=== PATIENT | male | born 1990 | race Caucasian/White ===

== ENCOUNTER 2018-07-13 02:16 | Emergency (ER) | END 2018-07-13 06:02 | disposition home or self-care (01) ==

== ENCOUNTER 2019-06-07 14:04 | Emergency (ER) | payer MEDICAID, OTHER ==
[~2019-06-07] VITALS: Ht 188 cm; Wt 78.0 kg
[~2019-06-07 14:04] MED LIST: MED4DP PO; NAPR-985 PO
[2019-06-07 14:09] VITALS: BP 110/79; PULSE 87; RESP 20; Ht 188 cm; Wt 78.0 kg
--- NOTE | 2019-06-07 14:30 | ERD ---
ER Documentation Chief Complaint Chief Complaint LEFT TOE PAIN/SWELLING HPI 29-year-old male presents to ED complaining of left toe pain times this morning. He states he woke up suddenly with this pain. He denies any injury or trauma to the pain. He denies any previous history of similar events. He has not taken any medication for the pain. He rates the pain a 6 out of 10 intensity that is worse with movement and better with rest. He reports that he has been walking frequently in the past few days. He denies any other past medical history. ROS All systems reviewed and are negative except as per history of present illness. Medications Home Meds Active Scripts Methylprednisolone* (Medrol* DOSE PACK) 4 Mg/Dose-Pack Tab.ds.pk, 4 MG PO . DIRECTED for 4 Days, PACKET Prov:BUTCH MORTENSEN PA-C 06/07/19 Naproxen* (Naprosyn*) 500 Mg Tablet, 500 MG PO BID PRN for PAIN AND/OR INFLAMMATION, #30 TAB Prov:BUTCH MORTENSEN PA-C 06/07/19 Naproxen* (Naprosyn*) 500 Mg Tablet, 500 MG PO BID PRN for PAIN AND/OR INFLAMMATION, #30 TAB Prov:JORDYNTRAE 07/13/18 Allergies Allergies: Coded Allergies: No Known Drug Allergies (Verified Allergy, Unknown, 07/13/18) PMhx/Soc History of Surgery: Yes (VASECTOMY 1 MONTH AGO) Hx Miscellaneous Medical Probl: Yes Hx Alcohol Use: Yes Hx Substance Use: No Hx Tobacco Use: Yes FmHx Family History: No diabetes Physical Exam Vitals Vital Signs Date Temp Pulse Resp B/P (MAP) Pulse Ox O2 O2 Flow FiO2 Time Delivery Rate 06/07/19 97.6 87 20 110/79 98 14:09 (89) Physical Exam Const: No acute distress Head: Atraumatic Resp: Clear to auscultation bilaterally Cardio: Regular rate and rhythm, Abd: Soft, non tender, non distended. Skin: No petechiae or rashes Ext: Tenderness to the ball underneath the left toe. Significant pain with movement of the left toe. No obvious bony abnormalities. Good 2+ pulses. Good sensation. Good range of motion Neur: Awake and alert Psych: Normal Mood and Affect Procedures/MDM ED COURSE: The patient was stable throughout ED course. I kept the patient informed of laboratory and diagnostic imaging results throughout the ED course. MEDICAL DECISION MAKING: Patient is a male complaining of left toe tendinitis. I have low suspicion for gout, pseudogout, fracture, osteomyelitis, septic joint. Patient reports that he has been walking frequently. He has significant tenderness when moving the big toe. It appears that this is a tendinitis. Patient was discharged on outpatient basis with naproxen and a Medrol Dosepak to help with inflammation control. Patient was also instructed to roll his foot underneath a frozen water bottle several times per day. Patient agreed with the plan. Patient was told to follow-up with his primary care provider in the next 1 to 2 days. All questions answered. Patient was given strict return ED precautions to return back to ED if symptoms persist or worsen. Vital signs were reviewed. Patient is afebrile. Patient was not hypoxic. Patient was hemodynamically stable. Patient was told to follow up with primary care for further care and management. PRESCRIPTION: Naproxen, Medrol Dosepak DISCHARGE: At this time, patient is stable for discharge and outpatient management. I have instructed the patient to follow-up with their primary care physician in 1-2 days. I have discussed with the patient the possibility of needing to see a specialist for further workup and imaging studies if symptoms persist. I have instructed the patient to promptly return to the ER for any new or worsening symptoms including increased pain, fever, nausea, vomiting, weakness or LOC. The patient expressed understanding of and agreement with this plan. All questions were answered. Home care instructions were provided. Disclaimer: Inadvertent spelling and grammatical errors are likely due to EHR/dictation software use and do not reflect on the overall quality of patient care. Also, please note that the electronic time recorded on this note does not necessarily reflect the actual time of the patient encounter. Departure Diagnosis: Primary Impression: Tendonitis Condition: Fair Patient Instructions: Tendonitis Referrals: COMMUNITY CLINICS YOU HAVE RECEIVED A MEDICAL SCREENING EXAM AND THE RESULTS INDICATE THAT YOU DO NOT HAVE A CONDITION THAT REQUIRES URGENT TREATMENT IN THE EMERGENCY DEPARTMENT. FURTHER EVALUATION AND TREATMENT OF YOUR CONDITION CAN WAIT UNTIL YOU ARE SEEN IN YOUR DOCTORS OFFICE WITHIN THE NEXT 1-2 DAYS. IT IS YOUR RESPONSIBILITY TO MAKE AN APPOINTMENT FOR FOLOW-UP CARE. IF YOU HAVE A PRIMARY DOCTOR --you should call your primary doctor and schedule an appointment IF YOU DO NOT HAVE A PRIMARY DOCTOR YOU CAN CALL OUR PHYSICIAN REFERRAL HOTLINE AT IF YOU CAN NOT AFFORD TO SEE A PHYSICIAN YOU CAN CHOSE FROM THE FOLLOWING [facility] [address] [facility] [address] [facility] [address] [facility] [address] [facility] [address] [facility]. [facility] [address] [facility]. [facility] YOU HAVE RECEIVED A MEDICAL SCREENING EXAM AND THE RESULTS INDICATE THAT YOU DO NOT HAVE A CONDITION THAT REQUIRES URGENT TREATMENT IN THE EMERGENCY DEPARTMENT. FURTHER EVALUATION AND TREATMENT OF YOUR CONDITION CAN WAIT UNTIL YOU ARE SEEN IN YOUR DOCTORS OFFICE WITHIN THE NEXT 1-2 DAYS. IT IS YOUR RESPONSIBILITY TO MAKE AN APPOINTMENT FOR FOLOW-UP CARE. IF YOU HAVE A PRIMARY DOCTOR --you should call your primary doctor and schedule and appointment IF YOU DO NOT HAVE A PRIMARY DOCTOR YOU CAN CALL OUR PHYSICIAN REFERRAL HOTLINE AT . IF YOU CAN NOT AFFORD TO SEE A PHYSICIAN YOU CAN CHOSE FROM THE FOLLOWING [facility]: [facility] [address] [place] [address] [facility] [address] [place] [address] [facility] [address] [place] [address] Additional Instructions: Call your primary care doctor TOMORROW for an appointment during the next 1-2 days.See the doctor sooner or return here if your condition worsens before your appointment time. BUTCH MORTENSEN PA-C Jun 07, 2019 14:30
== END 2019-06-07 14:31 | disposition home or self-care (01) ==
LOC: E/R 14:04
DX: M77.9 Enthesopathy, unspecified (principal); Z87.891 Personal history of nicotine dependence
CPT/HCPCS: 99283